=== PATIENT | male | born 1945 | race Caucasian/White ===

== ENCOUNTER 2022-05-25 13:27 | Inpatient (IN) | payer MEDICARE, BC, SELFPAY ==
[2022-05-25] VITALS (20 sets, daily range): BP systolic 136–187; BP diastolic 66–92; PULSE 72–102; RESP 15–18; TEMP 36.7; O2SAT 94–99; BMI 22.6
[2022-05-25] MEDS: ONDANSETRON 4 MG/2 ML INJ IV (16:06)
[2022-05-25 16:19] LABS: Add Manual Diff / Slide Review NO; Basophils Absolute Auto 0 /uL (0-100); Basophils Percent Auto 0.2 % (0-2); Eosinophils Absolute Auto 0 /uL (0-450); Hemoglobin 18.3 g/dL (13.5-17.5); Lymphocytes Absolute Auto 600 /uL (1100-4500); Lymphocytes Percent Auto 6.2 % (25-40); Mean Corpuscular HGB Conc 35.1 % (30-36); Mean Corpuscular Hemoglobin 33.5 PG (26-34); Mean Corpuscular Volume 95.3 fL (80-100); Monocytes Absolute Auto 600 /uL (0-900); Monocytes Percent Auto 6.2 % (3-14); Neutrophils Absolute Auto 8400 /uL (1500-7000); Neutrophils Percent Auto 87.4 % (50-75); Platelet Count 289 X10^3/uL (150-400); Red Blood Cell Count 5.46 X10^6/uL (4.5-5.9); Red Cell Distribution Width 13.5 % (11.6-14.8); White Blood Cell Count 9.7 X10^3/uL (4.5-11.0)
[2022-05-25 16:37] LABS: Alanine Aminotransferase 17 IU/L (<50); Albumin Globulin Ratio 1.2 (1.0-2.8); Alkaline Phosphatase 96 U/L (38-126); Aspartate Aminotransferase 30 IU/L (17-59); BUN Creatinine Ratio 21.3 (6-22); Bilirubin Total 0.8 mg/dL (0.2-1.3); Blood Urea Nitrogen 33 mg/dL (9-20); Calcium 10.1 mg/dL (8.4-10.2); Carbon Dioxide 34 mmol/L (22-32); Chloride 96 mmol/L (98-107); Estimated Glomerular Filt Rate 46 mL/min (>60); Globulin 4.1 g/dL (1.7-4.1); Glucose 128 mg/dL (80-110); HEMOLYSIS < 15 (0-50); Potassium 4.1 mmol/L (3.4-5.1); Sodium 141 mmol/L (137-145); Total Protein 9.1 g/dL (6.3-8.2)
[2022-05-25 16:39] LABS: Lactate (Lactic Acid) 1.6 mmol/L (0.7-2.1)
--- NOTE | 2022-05-25 16:43 | DI.CT.S_ITS ---
PROCEDURE: CT ABDOMEN PELVIS W CON INDICATIONS: RLQ tenderness, bowel obstruction vs obstipation? TECHNIQUE: After the administration of intravenous contrast, axial sections acquired from the lung bases to the pubic symphysis. Coronal and sagittal reformats were performed. For radiation dose reduction, the following was used: automated exposure control, adjustment of mA and/or kV according to patient size. COMPARISON: None. FINDINGS: Lower thorax: The lung bases are clear. Heart size normal. No hiatal hernia. Liver: Normal in size and attenuation. No contour deformity present. Biliary system: No calcified cholelithiasis or pericholecystic inflammation. No intra or extrahepatic bile duct dilatation. Pancreas: Stippled pancreatic calcification noted. No pancreatic pseudocyst. Spleen: Normal in size and density. Adrenals: Normal morphology and density. Reproductive system: Unremarkable as visualized. Urinary system: Normal renal size and attenuation. Peripelvic left renal cysts. No renal calculi, hydronephrosis, or solid mass present. Urinary bladder unremarkable. Gastrointestinal system: Proximal small bowel is fluid distended measuring up to 3.2 cm. Distal small bowel is decompressed. 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 Multiple diverticula arise from the sigmoid colon without evidence of diverticulitis. Appendix: No findings to suggest acute appendicitis. Peritoneal spaces: No mesenteric or retroperitoneal adenopathy. No free air. No free fluid. Vasculature: The IVC, aorta and iliac vasculature are unremarkable. Abdominal wall: Abdominal wall intact without evidence of ventral or inguinal hernias. Musculoskeletal: Normal bone mineralization. No acute fractures. IMPRESSION: 1. Small-bowel obstruction. 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 No evidence of perforation. 2. Stippled pancreatic calcification probable sequelae of chronic pancreatitis. Approved by: Tr Martin M.D. on 05/25/2022 at 16:08
--- NOTE | 2022-05-25 16:46 | ED_ITS ---
HPI - Nausea/Vomiting/Diarrhea <SHRADDHA Garrett - Last Filed: 05/25/22 20:40> General Chief complaint: Nausea/Vomiting/Diarrhea Stated complaint: Nausea vomitting Time Seen by Provider: 05/25/22 16:19 Source: patient Mode of arrival: Ambulatory History of Present Illness HPI Narrative: This is a 76-year-old male who presents to the emergency department complaining of right lower quadrant abdominal pain, transverse across his low abdomen for the last 2-3 days, endorses nausea and vomiting frequently over the last 2 days, feeling dehydrated, tired, endorses low back pain as well. Patient denies any shortness of breath, chest pain, orthopnea or exertional dyspnea. He has a history of hypertension states he only takes a blood pressure pill. He denies any blood in his stool but reports that yesterday he had a very large impacted stool that was painful and patient reports feeling GI distress today but denies any diarrhea. He reports that he has been constipated over the last week. They live in [facility] and are here on a boat currently. Patient denies fever or chills but endorses nausea and vomiting with hot and cold flush sensation. Related Data Allergies Allergy/AdvReac Type Severity Reaction Status Date / Time Sulfa (Sulfonamide Allergy Verified 05/25/22 13:42 Antibiotics) Review of Systems <SHRADDHA Garrett - Last Filed: 05/25/22 20:40> Review of Systems Narrative: General: denies fever, chills, malaise, sweats, fatigue Head/Neck: denies headache, neck pain, dizziness Eyes: denies visual changes, eye pain Cardio: denies chest pain, palpitations, edema Respiratory: denies dyspnea, cough, orthopnea GI: Endorses low transverse abdominal pain, nausea, vomiting : denies dysuria, hematuria, urinary retention, frequency or incontinence MSK: denies joint pain, muscle weakness Skin: denies rash, itching, skin lesions or other Neuro: denies numbness, tingling Patient History <SHRADDHA Garrett - Last Filed: 05/25/22 20:40> Social History Smoking Status: Unknown if ever smoked Smoking Status: Unknown if ever smoked alcohol intake frequency: 3 or more drinks per day Substance Use Type: does not use Exam <SHRADDHA Garrett - Last Filed: 05/25/22 20:40> Narrative Exam Narrative: Reviewed vitals signs and nursing notes. General: cooperative, comfortable, in no acute distress, well groomed HEENT: symmetrical facial expressions, moist mucous membranes Cardiovascular: regular rate and rhythm, no peripheral edema, warm extremities Respiratory: normal effort, able to speak in complete sentences, without wheezing, stridor, or abnormal breath sounds. No retractions or tachypnea. GI: abdomen distended, tender to palpation to the right upper quadrant, nondistended, without masses, without rebound tendernes MSK: moves all extremities, neurovascularly intact, no weakness, normal tone Skin: brisk capillary refill, without pallor or erythema Neuro: normal speech and cognition, A&O x3, ambulatory, clear speech Psych: mental status is grossly normal, congruent mood, normal affect, pleasant and cooperative Initial Vital Signs Initial Vital Signs: Vital Signs Temperature 98.0 F 05/25/22 13:42 Pulse Rate 87 05/25/22 13:42 Respiratory Rate 15 05/25/22 13:42 Blood Pressure 136/87 05/25/22 13:42 Pulse Oximetry 98 05/25/22 13:42 Oxygen Delivery Method 05/25/22 13:42 <Toma Roblero DO - Last Filed: 05/26/22 08:31> Initial Vital Signs Initial Vital Signs: Vital Signs Temperature 98.0 F 05/25/22 13:42 Pulse Rate 87 05/25/22 13:42 Respiratory Rate 15 05/25/22 13:42 Blood Pressure 136/87 05/25/22 13:42 Pulse Oximetry 98 05/25/22 13:42 Oxygen Delivery Method 05/25/22 13:42 Course <SHRADDHA Garrett - Last Filed: 05/25/22 20:40> Orders Ordered: ED Orders 05/26/22 00:04 Consult to Discharge Planning Routine Education, smoking cessation ONGOING 05/26/22 06:55 Basic Metabolic Panel Routine Complete Blood Count AUTO DIFF Routine NT-proBNP (BNP-Adult 18+) Routine Acetaminophen (Acetaminophen 325 Mg Tablet) 650 mg PO Q6HR [facility] Last Admin: 05/26/22 05:32 Dose: Not Given Documented By: Admin: 05/26/22 02:26 Dose: Not Given Documented By: SUE Enoxaparin Sodium (Enoxaparin 30 Mg/0.3 Ml Syringe) 30 mg SUBCUT DAILY [facility] Famotidine (Famotidine 20 Mg Tablet) 20 mg PO BEDTIME [facility] Last Admin: 05/26/22 00:44 Dose: Not Given Documented By: SUE Sodium Chloride (Normal Saline 0.9%) 1,000 mls @ 100 mls/hr IV CONT [facility] Last Admin: 05/26/22 04:32 Dose: 100 mls/hr Documented By: Infusion: 05/26/22 04:32 Dose: 100 mls/hr Documented By: Admin: 05/25/22 19:26 Dose: 100 mls/hr Documented By: SUE Sodium Chloride (Normal Saline 0.9%) 1,000 mls @ 100 mls/hr IV CONT [facility] Last Admin: 05/26/22 00:45 Dose: Not Given Documented By: SUE Naloxone HCl (Naloxone 0.4 Mg/Ml Vial) 0.1 mg IV Q2MIN PRN PRN Reason: Opiate Reversal Ondansetron HCl (Ondansetron 4 Mg Odt) 4 mg PO Q8HR PRN PRN Reason: Nausea And Vomiting Oxycodone HCl (Oxycodone Ir 5 Mg Tablet) 5 mg PO Q4HR PRN PRN Reason: Pain, Moderate (4-6) Discontinued Medications Lactated Ringer's (Lactated Ringers) 1,000 mls @ 1,000 mls/hr IV BOLUS ONE Stop: 05/25/22 17:42 Last Infusion: 05/25/22 18:13 Dose: 0 mls/hr Documented By: Admin: 05/25/22 17:04 Dose: 1,000 mls/hr Documented By: GIOVANNA Sodium Chloride (Normal Saline 0.9%) 500 mls @ 1,000 mls/hr IV BOLUS ONE Stop: 05/25/22 19:18 Last Infusion: 05/25/22 19:29 Dose: 0 mls/hr Documented By: Admin: 05/25/22 19:07 Dose: 1,000 mls/hr Documented By: GIOVANNA Ondansetron HCl (Ondansetron 4 Mg/2 Ml Inj) 4 mg IV NOW ONE Stop: 05/25/22 15:49 Last Admin: 05/25/22 16:06 Dose: 4 mg Documented By: KRISTIAN Vital Signs Vital signs: Vital Signs - 8 hr 05/25/22 13:42 05/25/22 17:15 05/25/22 16:20 Temperature 98.0 F Pulse Rate 87 87 88 Respiratory Rate 15 18 18 Blood Pressure 136/87 165/86 H 156/82 H Pulse Oximetry 98 97 97 Oxygen Delivery Method Room Air <Toma Roblero DO - Last Filed: 05/26/22 08:31> Orders Ordered: ED Orders 05/26/22 00:04 Consult to Discharge Planning Routine Education, smoking cessation ONGOING 05/26/22 06:55 Basic Metabolic Panel Routine Complete Blood Count AUTO DIFF Routine NT-proBNP (BNP-Adult 18+) Routine Acetaminophen (Acetaminophen 325 Mg Tablet) 650 mg PO Q6HR [facility] Last Admin: 05/26/22 05:32 Dose: Not Given Documented By: Admin: 05/26/22 02:26 Dose: Not Given Documented By: SUE Enoxaparin Sodium (Enoxaparin 30 Mg/0.3 Ml Syringe) 30 mg SUBCUT DAILY [facility] Famotidine (Famotidine 20 Mg Tablet) 20 mg PO BEDTIME [facility] Last Admin: 05/26/22 00:44 Dose: Not Given Documented By: SUE Sodium Chloride (Normal Saline 0.9%) 1,000 mls @ 100 mls/hr IV CONT [facility] Last Admin: 05/26/22 04:32 Dose: 100 mls/hr Documented By: Infusion: 05/26/22 04:32 Dose: 100 mls/hr Documented By: Admin: 05/25/22 19:26 Dose: 100 mls/hr Documented By: SUE Sodium Chloride (Normal Saline 0.9%) 1,000 mls @ 100 mls/hr IV CONT [facility] Last Admin: 05/26/22 00:45 Dose: Not Given Documented By: SUE Naloxone HCl (Naloxone 0.4 Mg/Ml Vial) 0.1 mg IV Q2MIN PRN PRN Reason: Opiate Reversal Ondansetron HCl (Ondansetron 4 Mg Odt) 4 mg PO Q8HR PRN PRN Reason: Nausea And Vomiting Oxycodone HCl (Oxycodone Ir 5 Mg Tablet) 5 mg PO Q4HR PRN PRN Reason: Pain, Moderate (4-6) Discontinued Medications Lactated Ringer's (Lactated Ringers) 1,000 mls @ 1,000 mls/hr IV BOLUS ONE Stop: 05/25/22 17:42 Last Infusion: 05/25/22 18:13 Dose: 0 mls/hr Documented By: Admin: 05/25/22 17:04 Dose: 1,000 mls/hr Documented By: GIOVANNA Sodium Chloride (Normal Saline 0.9%) 500 mls @ 1,000 mls/hr IV BOLUS ONE Stop: 05/25/22 19:18 Last Infusion: 05/25/22 19:29 Dose: 0 mls/hr Documented By: Admin: 05/25/22 19:07 Dose: 1,000 mls/hr Documented By: GIOVANNA Ondansetron HCl (Ondansetron 4 Mg/2 Ml Inj) 4 mg IV NOW ONE Stop: 05/25/22 15:49 Last Admin: 05/25/22 16:06 Dose: 4 mg Documented By: KRISTIAN Vital Signs Vital signs: Vital Signs - 8 hr 05/25/22 13:42 05/25/22 17:15 05/25/22 16:20 Temperature 98.0 F Pulse Rate 87 87 88 Respiratory Rate 15 18 18 Blood Pressure 136/87 165/86 H 156/82 H Pulse Oximetry 98 97 97 Oxygen Delivery Method Room Air MDM - Nausea/Vomiting/Diarrhea <SHRADDHA Garrett - Last Filed: 05/25/22 20:40> Lab Data Result diagrams: 05/26/22 06:55 05/26/22 06:55 Labs: Lab Results 05/25/22 05/25/22 05/25/22 Range/Units 16:00 16:00 16:06 WBC 9.7 (4.5-11.0) X10^3/uL RBC 5.46 (4.5-5.9) X10^6/uL Hgb 18.3 H (13.5-17.5) g/dL Hct 52.0 (41-53) % MCV 95.3 (80-100) fL MCH 33.5 (26-34) PG MCHC 35.1 (30-36) % RDW 13.5 (11.6-14.8) % Plt Count 289 (150-400) X10^3/uL Neut % (Auto) 87.4 H (50-75) % Lymph % (Auto) 6.2 L (25-40) % [place] % (Auto) 6.2 (3-14) % Eos % (Auto) 0.0 L (2-4) % Baso % (Auto) 0.2 (0-2) % Neut # (Auto) 8400 H (4526-8404) /uL Lymph # (Auto) 600 L (6413-1650) /uL [place] # (Auto) 600 (0-900) /uL Eos # (Auto) 0 (0-450) /uL Baso # (Auto) 0 (0-100) /uL Sodium (137-145) mmol/L Potassium (3.4-5.1) mmol/L Chloride (98-107) mmol/L Carbon Dioxide (22-32) mmol/L BUN (9-20) mg/dL Creatinine (0.66-1.25) mg/dL Estimated GFR (>60) mL/min BUN/Creatinine Ratio (6-22) Glucose (80-110) mg/dL Lactate 1.6 (0.7-2.1) mmol/L Calcium (8.4-10.2) mg/dL Magnesium 2.3 (1.6-2.3) mg/dL Total Bilirubin (0.2-1.3) mg/dL AST (17-59) IU/L ALT (<50) IU/L Alkaline Phosphatase (38-126) U/L Total Protein (6.3-8.2) g/dL Albumin (3.5-5.0) g/dL Globulin (1.7-4.1) g/dL Albumin/Globulin Ratio (1.0-2.8) Lipase 62 (23-300) U/L 05/25/22 Range/Units 16:06 WBC (4.5-11.0) X10^3/uL RBC (4.5-5.9) X10^6/uL Hgb (13.5-17.5) g/dL Hct (41-53) % MCV (80-100) fL MCH (26-34) PG MCHC (30-36) % RDW (11.6-14.8) % Plt Count (150-400) X10^3/uL Neut % (Auto) (50-75) % Lymph % (Auto) (25-40) % [place] % (Auto) (3-14) % Eos % (Auto) (2-4) % Baso % (Auto) (0-2) % Neut # (Auto) (0145-9501) /uL Lymph # (Auto) (7757-9015) /uL [place] # (Auto) (0-900) /uL Eos # (Auto) (0-450) /uL Baso # (Auto) (0-100) /uL Sodium 141 (137-145) mmol/L Potassium 4.1 (3.4-5.1) mmol/L Chloride 96 L (98-107) mmol/L Carbon Dioxide 34 H (22-32) mmol/L BUN 33 H (9-20) mg/dL Creatinine 1.55 H (0.66-1.25) mg/dL Estimated GFR 46 L (>60) mL/min BUN/Creatinine Ratio 21.3 (6-22) Glucose 128 H (80-110) mg/dL Lactate (0.7-2.1) mmol/L Calcium 10.1 (8.4-10.2) mg/dL Magnesium (1.6-2.3) mg/dL Total Bilirubin 0.8 (0.2-1.3) mg/dL AST 30 (17-59) IU/L ALT 17 (<50) IU/L Alkaline Phosphatase 96 (38-126) U/L Total Protein 9.1 H (6.3-8.2) g/dL Albumin 5.0 (3.5-5.0) g/dL Globulin 4.1 (1.7-4.1) g/dL Albumin/Globulin Ratio 1.2 (1.0-2.8) Lipase (23-300) U/L Imaging Data CT scan - abdomen/pelvis: Radiologist's Impression: PROCEDURE:? CT ABDOMEN PELVIS W CON ? INDICATIONS:? RLQ tenderness, bowel obstruction vs obstipation? ? TECHNIQUE:? After the administration of intravenous contrast, axial sections acquired from the lung bases to the pubic symphysis.? Coronal and sagittal reformats were performed.? For radiation dose reduction, the following was used:? automated exposure control, adjustment of mA and/or kV according to patient size.? ? COMPARISON:? None. ? FINDINGS: ? Lower thorax: The lung bases are clear.? Heart size normal.? No hiatal hernia. ? Liver:? Normal in size and attenuation. No contour deformity present. ? Biliary system:? No calcified cholelithiasis or pericholecystic inflammation.? No intra or extrahepatic bile duct dilatation. ? Pancreas:? Stippled pancreatic calcification noted.? No pancreatic pseudocyst. ? Spleen:? Normal in size and density. ? Adrenals:? Normal morphology and density. ? Reproductive system:? Unremarkable as visualized. ? Urinary system:? Normal renal size and attenuation.? Peripelvic left renal c ysts.? No renal calculi, hydronephrosis, or solid mass present.? Urinary bladder unremarkable. ? Gastrointestinal system:? Proximal small bowel is fluid distended measuring up to 3.2 cm. ?Distal small bowel is decompressed.? 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 Multiple diverticula arise from the sigmoid colon without evidence of diverticulitis. ? ? Appendix:? No findings to suggest acute appendicitis. ? Peritoneal spaces:? No mesenteric or retroperitoneal adenopathy.? No free air.? No free fluid.? ? Vasculature:? The IVC, aorta and iliac vasculature are unremarkable. ? Abdominal wall:? Abdominal wall intact without evidence of ventral or inguinal hernias. ? Musculoskeletal:? Normal bone mineralization.? No acute fractures.? ? IMPRESSION: ? 1. Small-bowel obstruction.? 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 No evidence of perforation. ? 2. Stippled pancreatic calcification probable sequelae of chronic pancreatitis.? ? ? Approved by: Tr Martin M.D. on 05/25/2022 at 16:08? MDM Narrative Medical decision making narrative: This is a 76-year-old male without significant medical history who presents to the emergency department for evaluation of his abdominal pain and persistent vomiting over last 3 days. His lab work showed hemoconcentration was concerning for dehydration, neutrophil count of 8400 no significant electrolyte abnormalities, his creatinine elevated at 1.55. No lactic acidosis, no elevation in liver enzymes, lipase of 62. No history of kidney stones or abdominal surgery. 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 No evidence of perforation, stapled pancreatic calcification probable sequelae of chronic pancreatitis. Patient was given 1 L of lactated Ringer's, 4 mg of Zofran and had resolution of his repetitive vomiting. Consultation with Dr. Camp who accepts patient for admission for small-bowel obstruction. NG tube was placed to low intermittent suction, patient stomach is decompressed and he feels better. COVID PCR is negative. No peritoneal signs on abdominal exam. Serial abdominal exam without improvement in abdominal pain. Given history and exam, low suspicion for acute abdominal process, such as acute cholecystitis, pancreatitis, perforated viscus, atypical appendicitis, colitis, diverticulitis or torsion. <Toma Roblero, DO - Last Filed: 05/26/22 08:31> Lab Data Labs: Lab Results 05/25/22 05/25/22 05/25/22 Range/Units 16:00 16:00 16:06 WBC 9.7 (4.5-11.0) X10^3/uL RBC 5.46 (4.5-5.9) X10^6/uL Hgb 18.3 H (13.5-17.5) g/dL Hct 52.0 (41-53) % MCV 95.3 (80-100) fL MCH 33.5 (26-34) PG MCHC 35.1 (30-36) % RDW 13.5 (11.6-14.8) % Plt Count 289 (150-400) X10^3/uL Neut % (Auto) 87.4 H (50-75) % Lymph % (Auto) 6.2 L (25-40) % [place] % (Auto) 6.2 (3-14) % Eos % (Auto) 0.0 L (2-4) % Baso % (Auto) 0.2 (0-2) % Neut # (Auto) 8400 H (0465-1287) /uL Lymph # (Auto) 600 L (0902-0482) /uL [place] # (Auto) 600 (0-900) /uL Eos # (Auto) 0 (0-450) /uL Baso # (Auto) 0 (0-100) /uL Sodium (137-145) mmol/L Potassium (3.4-5.1) mmol/L Chloride (98-107) mmol/L Carbon Dioxide (22-32) mmol/L BUN (9-20) mg/dL Creatinine (0.66-1.25) mg/dL Estimated GFR (>60) mL/min BUN/Creatinine Ratio (6-22) Glucose (80-110) mg/dL Lactate 1.6 (0.7-2.1) mmol/L Calcium (8.4-10.2) mg/dL Magnesium 2.3 (1.6-2.3) mg/dL Total Bilirubin (0.2-1.3) mg/dL AST (17-59) IU/L ALT (<50) IU/L Alkaline Phosphatase (38-126) U/L Total Protein (6.3-8.2) g/dL Albumin (3.5-5.0) g/dL Globulin (1.7-4.1) g/dL Albumin/Globulin Ratio (1.0-2.8) Lipase 62 (23-300) U/L 05/25/22 Range/Units 16:06 WBC (4.5-11.0) X10^3/uL RBC (4.5-5.9) X10^6/uL Hgb (13.5-17.5) g/dL Hct (41-53) % MCV (80-100) fL MCH (26-34) PG MCHC (30-36) % RDW (11.6-14.8) % Plt Count (150-400) X10^3/uL Neut % (Auto) (50-75) % Lymph % (Auto) (25-40) % [place] % (Auto) (3-14) % Eos % (Auto) (2-4) % Baso % (Auto) (0-2) % Neut # (Auto) (1421-8564) /uL Lymph # (Auto) (1008-3054) /uL Stanton # (Auto) (0-900) /uL Eos # (Auto) (0-450) /uL Baso # (Auto) (0-100) /uL Sodium 141 (137-145) mmol/L Potassium 4.1 (3.4-5.1) mmol/L Chloride 96 L (98-107) mmol/L Carbon Dioxide 34 H (22-32) mmol/L BUN 33 H (9-20) mg/dL Creatinine 1.55 H (0.66-1.25) mg/dL Estimated GFR 46 L (>60) mL/min BUN/Creatinine Ratio 21.3 (6-22) Glucose 128 H (80-110) mg/dL Lactate (0.7-2.1) mmol/L Calcium 10.1 (8.4-10.2) mg/dL Magnesium (1.6-2.3) mg/dL Total Bilirubin 0.8 (0.2-1.3) mg/dL AST 30 (17-59) IU/L ALT 17 (<50) IU/L Alkaline Phosphatase 96 (38-126) U/L Total Protein 9.1 H (6.3-8.2) g/dL Albumin 5.0 (3.5-5.0) g/dL Globulin 4.1 (1.7-4.1) g/dL Albumin/Globulin Ratio 1.2 (1.0-2.8) Lipase (23-300) U/L Discharge Plan Departure Patient Disposition: Admitted As Inpatient Clinical Impression: Complete small bowel obstruction Admit Date/Time: 05/25/22 17:55 Admit Provider: Bren Camp <Toma Roblero DO - Last Filed: 05/26/22 08:31> Cosign ED Attending Ashleigh Attestation: I was immediately available in the department for consultation. Documentation has been reviewed. I agree with assessment and plan.
[2022-05-25 16:54] LABS: Lipase 62 U/L (23-300); Magnesium 2.3 mg/dL (1.6-2.3)
[2022-05-25] MEDS: LACTATED RINGERS 1,000 ML 1000 ML IV (17:04)
--- NOTE | 2022-05-25 18:24 | P.HP_ITS ---
History of Present Illness History of Present Illness Date Patient Seen: 05/25/22 Time Patient Seen: 18:24 Date of Onset of Symptoms: 05/22/22 Chief complaint: Nausea vomitting Narrative: 3 days of nausea and vomiting. Emesis over 30 times. No previous episodes. No abdominal surgery previously, but has had ETOH pancreatitis. Last BM was very hard. Pain is central and sharp. No radiation Patient History Family & Social History Safety & Behavioral: Feels Safe in Current Yes Environment Been Physically Hurt or No Threatened By a Person Tobacco & Substance use: Smoking Status Unknown if ever smoked alcohol intake frequency 3 or more drinks per day Substance Use Type does not use Meds Home Medications and Allergies Allergies Allergy/AdvReac Type Severity Reaction Status Date / Time Sulfa (Sulfonamide Allergy Verified 05/25/22 13:42 Antibiotics) Review of Systems Review of Systems ROS: Yes All systems reviewed with the patient and are negative except as otherwise documented Exam Vital Signs (past 8 hours): - 05/25/22 13:42 05/25/22 17:58 05/25/22 17:15 Temperature 98.0 F Pulse Rate 87 87 87 Respiratory Rate 15 18 18 Blood Pressure 136/87 178/81 H 165/86 H Pulse Oximetry 98 96 97 Oxygen Delivery Method Room Air 05/25/22 16:20 Temperature Pulse Rate 88 Respiratory Rate 18 Blood Pressure 156/82 H Pulse Oximetry 97 Oxygen Delivery Method Oxygen Delivery Method Room Air Const General: cooperative and acute distress Nutritional Appearance: thin HENMT Head: normocephalic and atraumatic Ears: hearing grossly normal bilaterally Eyes General: appearance normal, both eyes and all related structures Sclera: sclerae normal Neck Neck: normal visual inspection Chest Chest: normal inspection of the chest Resp Effort & Inspection: normal respiratory effort and able to speak in complete sentences Cardio Rate: regular rate Rhythm: regular rhythm GI Palpation: soft and tender (distended and tender to palpation in mid abdomen. Not acute. Moves easily) Skin General: no rashes or lesions noted and elasticity normal Neuro General: patient alert, patient awake and patient oriented x3 Cognition: normal cognition Extrem General: normal to inspection and full ROM Psych Appearance: grossly normal and well kempt Affect: normal affect Attitude: cooperative Judgment: judgment good Objective Imaging CT scan - abdomen: My impression: Agree with high grade SBO with transition mid abdomen. Calcified pancrease c/w previous inflammation. Is also concerning for ischemic component with the exception that it has been going on for 3 days. Labs Result Diagrams: 05/25/22 16:06 05/25/22 16:06 Labs: Laboratory Results - last 24 hr 05/25/22 05/25/22 05/25/22 16:00 16:00 16:06 WBC 9.7 RBC 5.46 Hgb 18.3 H Hct 52.0 MCV 95.3 MCH 33.5 MCHC 35.1 RDW 13.5 Plt Count 289 Neut % (Auto) 87.4 H Lymph % (Auto) 6.2 L [place] % (Auto) 6.2 Eos % (Auto) 0.0 L Baso % (Auto) 0.2 Neut # (Auto) 8400 H Lymph # (Auto) 600 L [place] # (Auto) 600 Eos # (Auto) 0 Baso # (Auto) 0 Sodium Potassium Chloride Carbon Dioxide BUN Creatinine Estimated GFR BUN/Creatinine Ratio Glucose Lactate 1.6 Calcium Magnesium 2.3 Total Bilirubin AST ALT Alkaline Phosphatase Total Protein Albumin Globulin Albumin/Globulin Ratio Lipase 62 05/25/22 16:06 WBC RBC Hgb Hct MCV MCH MCHC RDW Plt Count Neut % (Auto) Lymph % (Auto) [place] % (Auto) Eos % (Auto) Baso % (Auto) Neut # (Auto) Lymph # (Auto) [place] # (Auto) Eos # (Auto) Baso # (Auto) Sodium 141 Potassium 4.1 Chloride 96 L Carbon Dioxide 34 H BUN 33 H Creatinine 1.55 H Estimated GFR 46 L BUN/Creatinine Ratio 21.3 Glucose 128 H Lactate Calcium 10.1 Magnesium Total Bilirubin 0.8 AST 30 ALT 17 Alkaline Phosphatase 96 Total Protein 9.1 H Albumin 5.0 Globulin 4.1 Albumin/Globulin Ratio 1.2 Lipase Assessment & Plan Assessment & Plan narrative: High grade SBO mid abdomen. acute renal injury Plan: hydration, NGT to LIS, checking lactic acid COVID-19 COVID-19 status: Negative Time Spent With Patient Time with patient: 30 to 49 minutes with 50% spent counseling/coordinating care Critical Care time: I spent a total of [] minutes of critical care time on this patient's care today; this time is exclusive of procedural time.
--- NOTE | 2022-05-25 18:49 | DI.RAD.S_ITS ---
PROCEDURE: XR CHEST 1V INDICATIONS: ngt placement confirmation TECHNIQUE: One view of the chest was acquired. COMPARISON: None. FINDINGS: Surgical changes and devices: NG tube present with the tip and side hole projecting over the left upper quadrant of the abdomen. Lungs and pleura: Lungs are clear. No pleural effusions or pneumothorax. Mediastinum: Mediastinal contours appear normal. Heart size is normal. Bones and chest wall: No suspicious bony lesions. Overlying soft tissues appear unremarkable. IMPRESSION: 1. Satisfactory placement of nasogastric tube. 2. Normal heart and lungs. Dictated by: Dianne Clarke M.D. on 05/25/2022 at 20:49 Approved by: Dianne Clarke M.D. on 05/25/2022 at 20:50
[2022-05-25] MEDS: SODIUM CHLORIDE 0.9% 500 ML 1000 ML IV (19:07)
[2022-05-25 19:13] LABS: COVID19 -Nasal RAPID Negative (Negative)
[2022-05-25] MEDS: SODIUM CHLORIDE 0.9% 1,000 ML 100 ML IV (19:26)
[2022-05-25 21:13] LABS: Ictotest Urine Negative (Negative)
[2022-05-25 21:28] LABS: Bacteria Urine None Seen; Hyaline Casts Urine 0-1/LPF; RBC Urine 0-1/HPF (0-5/HPF); Squamous Epithelial Cell Urine 0-1 /HPF (0-5/HPF); WBC Urine 0-1/HPF (0-5/HPF)
[2022-05-25 21:29] LABS: Culture Indicated Urine Cult Not Indicated
[2022-05-26] VITALS (29 sets, daily range): BP systolic 118–170; BP diastolic 58–100; PULSE 61–97; RESP 17–19; TEMP 36.4–37.3; O2SAT 93–98; BMI 21.7
[2022-05-26] MEDS: SODIUM CHLORIDE 0.9% 1,000 ML 100 ML IV ×2 (04:32→15:58)
[2022-05-26 07:20] LABS: Add Manual Diff / Slide Review NO; Basophils Absolute Auto 0 /uL (0-100); Basophils Percent Auto 0.3 % (0-2); Eosinophils Absolute Auto 0 /uL (0-450); Eosinophils Percent Auto 0.4 % (2-4); Hematocrit 46.4 % (41-53); Hemoglobin 16.3 g/dL (13.5-17.5); Lymphocytes Absolute Auto 1000 /uL (1100-4500); Lymphocytes Percent Auto 12.4 % (25-40); Mean Corpuscular HGB Conc 35.1 % (30-36); Mean Corpuscular Hemoglobin 33.6 PG (26-34); Mean Corpuscular Volume 95.7 fL (80-100); Monocytes Absolute Auto 800 /uL (0-900); Monocytes Percent Auto 9.8 % (3-14); Neutrophils Absolute Auto 6300 /uL (1500-7000); Neutrophils Percent Auto 77.1 % (50-75); Platelet Count 212 X10^3/uL (150-400); Red Blood Cell Count 4.85 X10^6/uL (4.5-5.9); Red Cell Distribution Width 13.9 % (11.6-14.8); White Blood Cell Count 8.2 X10^3/uL (4.5-11.0)
[2022-05-26 07:38] LABS: BUN Creatinine Ratio 24.1 (6-22); Blood Urea Nitrogen 26 mg/dL (9-20); Calcium 8.6 mg/dL (8.4-10.2); Carbon Dioxide 32 mmol/L (22-32); Chloride 103 mmol/L (98-107); Estimated Glomerular Filt Rate > 60 mL/min (>60); Glucose 97 mg/dL (80-110); HEMOLYSIS < 15 (0-50); Potassium 3.5 mmol/L (3.4-5.1); Sodium 141 mmol/L (137-145)
[2022-05-26 07:44] LABS: NT-proBNP (BNP-Adult 18+) 132 pg/mL (<450)
[2022-05-26] MEDS: ENOXAPARIN 30 MG/0.3 ML SYRINGE SUBCUT (08:45)
--- NOTE | 2022-05-26 15:54 | P.PN_ITS ---
Subjective Subjective Date Patient Seen: 05/26/22 Time Patient Seen: 15:54 Interval history: Pain is significantly decreased from yesterday. He reports that he feels like he will pass gas soon. Exam Vital Signs (past 8 hours): - 05/26/22 08:00 05/26/22 08:00 05/26/22 08:30 Temperature Pulse Rate 70 68 Respiratory Rate Blood Pressure 161/87 H Pulse Oximetry 95 94 05/26/22 09:00 05/26/22 09:29 05/26/22 09:29 Temperature Pulse Rate 67 75 Respiratory Rate Blood Pressure 151/83 H Pulse Oximetry 95 95 05/26/22 09:30 05/26/22 10:00 05/26/22 10:30 Temperature Pulse Rate 73 71 65 Respiratory Rate Blood Pressure Pulse Oximetry 95 96 96 05/26/22 11:00 05/26/22 12:47 Temperature 97.5 F L Pulse Rate 67 70 Respiratory Rate 17 Blood Pressure 150/80 H 146/81 H Pulse Oximetry 93 98 Oxygen Delivery Method Room Air Const General: No acute distress Other: Abdomen is soft, nontender Objective Labs Result Diagrams: 05/26/22 06:55 05/26/22 06:55 Labs: Laboratory Results - last 24 hr 05/25/22 05/25/22 05/25/22 16:00 16:00 16:06 WBC 9.7 RBC 5.46 Hgb 18.3 H Hct 52.0 MCV 95.3 MCH 33.5 MCHC 35.1 RDW 13.5 Plt Count 289 Neut % (Auto) 87.4 H Lymph % (Auto) 6.2 L Miller % (Auto) 6.2 Eos % (Auto) 0.0 L Baso % (Auto) 0.2 Neut # (Auto) 8400 H Lymph # (Auto) 600 L Miller # (Auto) 600 Eos # (Auto) 0 Baso # (Auto) 0 Sodium Potassium Chloride Carbon Dioxide BUN Creatinine Estimated GFR BUN/Creatinine Ratio Glucose Lactate 1.6 Calcium Magnesium 2.3 Total Bilirubin AST ALT Alkaline Phosphatase NT-Pro-B Natriuret Pep Total Protein Albumin Globulin Albumin/Globulin Ratio Lipase 62 Ur Bilirubin Confirm Urine RBC Urine WBC Ur Squamous Epith Cells Urine Bacteria Hyaline Casts Ur Culture Indicated? SARS-CoV-2 (PCR) 08/24/22 08/24/22 08/24/22 16:06 18:00 20:09 WBC RBC Hgb Hct MCV MCH MCHC RDW Plt Count Neut % (Auto) Lymph % (Auto) Miller % (Auto) Eos % (Auto) Baso % (Auto) Neut # (Auto) Lymph # (Auto) Miller # (Auto) Eos # (Auto) Baso # (Auto) Sodium 141 Potassium 4.1 Chloride 96 L Carbon Dioxide 34 H BUN 33 H Creatinine 1.55 H Estimated GFR 46 L BUN/Creatinine Ratio 21.3 Glucose 128 H Lactate Calcium 10.1 Magnesium Total Bilirubin 0.8 AST 30 ALT 17 Alkaline Phosphatase 96 NT-Pro-B Natriuret Pep Total Protein 9.1 H Albumin 5.0 Globulin 4.1 Albumin/Globulin Ratio 1.2 Lipase Ur Bilirubin Confirm Urine RBC 0-1/hpf Urine WBC 0-1/hpf Ur Squamous Epith Cells 0-1 /hpf Urine Bacteria None seen Hyaline Casts 0-1/lpf Ur Culture Indicated? Cult not indicated SARS-CoV-2 (PCR) Negative 05/25/22 05/26/22 05/26/22 20:09 06:55 06:55 WBC 8.2 RBC 4.85 Hgb 16.3 Hct 46.4 MCV 95.7 MCH 33.6 MCHC 35.1 RDW 13.9 Plt Count 212 Neut % (Auto) 77.1 H Lymph % (Auto) 12.4 L Miller % (Auto) 9.8 Eos % (Auto) 0.4 L Baso % (Auto) 0.3 Neut # (Auto) 6300 Lymph # (Auto) 1000 L Miller # (Auto) 800 Eos # (Auto) 0 Baso # (Auto) 0 Sodium 141 Potassium 3.5 Chloride 103 Carbon Dioxide 32 BUN 26 H Creatinine 1.08 Estimated GFR > 60 BUN/Creatinine Ratio 24.1 H Glucose 97 Lactate Calcium 8.6 Magnesium Total Bilirubin AST ALT Alkaline Phosphatase NT-Pro-B Natriuret Pep Total Protein Albumin Globulin Albumin/Globulin Ratio Lipase Ur Bilirubin Confirm Negative Urine RBC Urine WBC Ur Squamous Epith Cells Urine Bacteria Hyaline Casts Ur Culture Indicated? SARS-CoV-2 (PCR) 05/26/22 06:55 WBC RBC Hgb Hct MCV MCH MCHC RDW Plt Count Neut % (Auto) Lymph % (Auto) Miller % (Auto) Eos % (Auto) Baso % (Auto) Neut # (Auto) Lymph # (Auto) Miller # (Auto) Eos # (Auto) Baso # (Auto) Sodium Potassium Chloride Carbon Dioxide BUN Creatinine Estimated GFR BUN/Creatinine Ratio Glucose Lactate Calcium Magnesium Total Bilirubin AST ALT Alkaline Phosphatase NT-Pro-B Natriuret Pep 132 Total Protein Albumin Globulin Albumin/Globulin Ratio Lipase Ur Bilirubin Confirm Urine RBC Urine WBC Ur Squamous Epith Cells Urine Bacteria Hyaline Casts Ur Culture Indicated? SARS-CoV-2 (PCR) [facility] Social History household members: spouse Smoking Status: Former smoker alcohol intake: current Assessment & Plan Assessment and plan (1) Complete small bowel obstruction: Status: Acute Plan Continue NG tube Await flatus Time Spent With Patient Critical Care time: I spent a total of [] minutes of critical care time on this patient's care today; this time is exclusive of procedural time. Quality VTE Deep Vein Thrombosis/Pulmonary Embolism Present on Admission: No
[2022-05-27] VITALS (7 sets, daily range): BP systolic 109–146; BP diastolic 58–77; PULSE 63–76; RESP 16–18; TEMP 36.4–37.4; O2SAT 96–98
[2022-05-27] MEDS: SODIUM CHLORIDE 0.9% FLUSH 10 ML IV (08:43)
[2022-05-27] MEDS: ENOXAPARIN 40 MG/0.4 ML SYRINGE SUBCUT (08:43)
[2022-05-27] MEDS: SODIUM CHLORIDE 0.9% 1,000 ML 100 ML IV (11:01)
--- NOTE | 2022-05-27 12:04 | CM.DANOTE ---
Initial Discharge Assessment Note: Case received, EMR reviewed. Introduced self and role. Payer: Medicare and [employer] [facility] PCP: in [place]. Surgeon consult here in house. 76 year old male admitted yesterday for N/V and dx'd with SBO. An NG tube was placed at the time. Dr Cano in this morning and removed NGT per day nurse Martha. Patient states he is passing a little gas and feeling a little better. He has been started on a clear liquid diet. He and his live in [facility] near their daughter (son in [place]). They drove out to [place] to be on their boat and traveled in the [facility] and nearing their return, he suffered the above symptoms. Plan: Once medically stable, to return home with spouse. PRATIBHA Discharge Planning/Care Management CM Discharge Assessment Start: 05/27/22 11:58 Freq: Status: Active Protocol: Document 05/27/22 11:58 (Rec: 05/27/22 12:04 [id number]) Discharge Planning Assessment Advance Directives? No History Provided By Patient,Medical Record Prior Living Arrangements House Household Members spouse Type of transporation used prior to Drives own vehicle admit Independent with ADL's Yes Is patient alert and oriented? Yes Caregiver for Another No Barriers to Discharge No Discharge Plan Home Transportation Arrangement spouse will provide transport. Pt lives in [facility] with spouse and are visiting here in [place] to be on their boat. Referrals Initiated None needed Whiteboard Updated in Patient Room with Yes name and ext. # of Plant Health Care Technician Review Status In Process Next Review Type Continued Stay Review
--- NOTE | 2022-05-27 14:21 | P.PN_ITS ---
Subjective Subjective Date Patient Seen: 05/27/22 Time Patient Seen: 14:21 Interval history: +Flatus No abdominal pain Hungry Exam Vital Signs (past 8 hours): - 05/27/22 08:00 05/27/22 09:00 05/27/22 12:00 Temperature 97.6 F 98.0 F Pulse Rate 75 63 Respiratory Rate 18 18 Blood Pressure 129/66 127/75 Pulse Oximetry 97 97 97 Oxygen Delivery Method Room Air Oxygen Flow Rate 0 0 0 Oxygen Delivery Method Room Air Oxygen Flow Rate 0 Narrative Exam Narrative: general adult male alert oriented no acute distress Abdomen soft nontender nondistended. Objective Labs Result Diagrams: 05/26/22 06:55 05/26/22 06:55 [facility] Social History household members: spouse Smoking Status: Former smoker alcohol intake: current Assessment & Plan Assessment and plan (1) Complete small bowel obstruction: Problem details: 76-year-old man no prior abdominal surgery admitted with a small-bowel obstruction. obstruction is resolving with conservative measures. He has return of bowel function Remove nasogastric tube Start clear liquids. Status: Acute Time Spent With Patient Critical Care time: I spent a total of [] minutes of critical care time on this patient's care today; this time is exclusive of procedural time. Quality VTE Deep Vein Thrombosis/Pulmonary Embolism Present on Admission: No
[2022-05-28 06:20] VITALS: BP 127/65; PULSE 60; RESP 16; TEMP 36.5; O2SAT 96
[2022-05-28] MEDS: SODIUM CHLORIDE 0.9% FLUSH 10 ML IV ×2 (08:13→21:21)
[2022-05-28 09:05] VITALS: O2SAT 96
[2022-05-28 10:15] VITALS: BP 132/78; PULSE 60; RESP 16; TEMP 36.7; O2SAT 97
--- NOTE | 2022-05-28 13:08 | PM.PN.1 ---
Subjective Subjective Date Patient Seen: 05/28/22 Time Patient Seen: 13:08 Interval history: Sebastian has continued to pass gas. He has tolerated a clear liquid diet and today he is doing well with a full liquid diet. He still feels as if he is more bloated than normal. Exam Vital Signs (past 8 hours): - 05/28/22 06:20 05/28/22 09:05 05/28/22 10:15 Temperature 97.7 F 98.1 F Pulse Rate 60 60 Respiratory Rate 16 16 Blood Pressure 127/65 132/78 Pulse Oximetry 96 96 97 Oxygen Delivery Method Room Air Oxygen Flow Rate 0 Oxygen Delivery Method Room Air Oxygen Flow Rate 0 Narrative Exam Narrative: Abdomen soft, nontender Objective Labs Result Diagrams: 05/26/22 06:55 05/26/22 06:55 [facility] Social History household members: spouse Smoking Status: Former smoker alcohol intake: current Assessment & Plan Assessment and plan (1) Complete small bowel obstruction: Problem details: 76-year-old man no prior abdominal surgery admitted with a small-bowel obstruction. obstruction is resolving with conservative measures. He has return of bowel function Remove nasogastric tube Start clear liquids. Status: Acute Plan Bowel obstruction appears to be resolving. We will advance to regular diet for dinner tonight and hopefully he can go home tomorrow. Time Spent With Patient Critical Care time: I spent a total of [] minutes of critical care time on this patient's care today; this time is exclusive of procedural time. Quality VTE Deep Vein Thrombosis/Pulmonary Embolism Present on Admission: No
[2022-05-28 14:15] VITALS: BP 131/72; PULSE 59; RESP 16; TEMP 36.7; O2SAT 97
--- NOTE | 2022-05-28 17:50 | PC.NURSE ---
patient tolerated general diet. no pain, no n/v. patient had another BM this afternoon
[2022-05-28 18:33] VITALS: BP 125/71; PULSE 65; RESP 16; TEMP 37.3; O2SAT 98
[2022-05-28 20:20] VITALS: BP 142/80; PULSE 64; RESP 18; TEMP 36.6; O2SAT 97
[2022-05-29] VITALS: BP 136/97; PULSE 59; RESP 16; TEMP 37; O2SAT 98
[2022-05-29 04:21] VITALS: BP 135/77; PULSE 68; RESP 20; TEMP 36.6; O2SAT 95
[2022-05-29 08:06] VITALS: BP 134/77; PULSE 57; RESP 16; TEMP 36.6; O2SAT 97
[2022-05-29 08:07] VITALS: O2SAT 97
[2022-05-29] MEDS: SODIUM CHLORIDE 0.9% FLUSH 10 ML IV (08:10)
[2022-05-29] MEDS: ENOXAPARIN 40 MG/0.4 ML SYRINGE SUBCUT (08:10)
--- NOTE | 2022-05-29 11:51 | P.DS_ITS ---
History of Present Illness History of Present Illness Date Patient Seen: 05/29/22 Time Patient Seen: 11:51 Chief complaint: Nausea vomitting Narrative: The patient was admitted with a small-bowel obstruction. Initially an NG tube was placed and there was high output. Eventually he felt better and started passing some gas. The NG tube was removed. His diet was gradually advanced. He was discharged home once he was tolerating regular diet and having bowel fu nction. Discharge Providers Provider Date of admission: 05/25/22 17:55 Discharge Date: 05/29/22 Consults: 05/25/22 17:31 Consult to General Surgery Stat Comment: Consulting Provider: Bren Camp Reason for consultation: small bowel obstruction Has provider been notified: Yes 05/26/22 00:04 Consult to Discharge Planning Routine Comment: from out of town, on his own boat. Discharge provider: Claude Monahan MD Exam Vital Signs (past 8 hours): - 05/29/22 04:21 05/29/22 08:06 05/29/22 08:07 Temperature 97.9 F 97.9 F Pulse Rate 68 57 L Respiratory Rate 20 16 Blood Pressure 135/77 134/77 Pulse Oximetry 95 97 97 Oxygen Delivery Method Room Air Oxygen Flow Rate 0 0 Oxygen Delivery Method Room Air Oxygen Flow Rate 0 Objective Labs Result Diagrams: 05/26/22 06:55 05/26/22 06:55 [facility] Social History household members: spouse Smoking Status: Former smoker alcohol intake: current Discharge Plan Discharge Plan Patient Disposition: Home Discharge orders & Medications Prescriptions: Continued amlodipine 10 mg tablet 10 mg PO DAILY Quality VTE Deep Vein Thrombosis/Pulmonary Embolism Present on Admission: No
--- NOTE | 2022-05-29 13:02 | PC.NURSE ---
Pt is dressed and ready for discharge home with Spouse. IV's has been removed. Went over d/c instructions with Pt and Spouse-discussed d/c meds, no new prescriptions, time of last dose, reviewed stroke education, reviewed dietary recommendation to decrease bowel obstruction risk, encouraged Pt to drink plenty of fluids to prevent constipation or dehydration. Pt to follow up with PCP when he returns home to [facility]. Pt out via w/c by [employer] to POV with Spouse and all belongings.
== END 2022-05-29 13:11 | disposition home or self-care (01) | DRG 390 ==
LOC: ED 17:46 → AC 17:57
PROVIDERS: Emergency Medicine; Admitting Provider Surgery; Emergency Provider Surgery; Referring Provider Nurse Practitioner Critical Care Medicine; Visit Provider Surgery
DX: K56.601 Complete intestinal obstruction, unspecified as to cause (principal); I10 Essential (primary) hypertension; Z87.891 Personal history of nicotine dependence; Z20.822 Contact with and (suspected) exposure to COVID-19
CPT/HCPCS: 36415; 71045; 74177; 80048; 80053; 81003; 81015; 83605; 83690; 83735; 83880; 85025; 87635; 96372; 96374; 99221; 99231; 99232; 99238; 99284; 99285; C9803; A9270; J1650; J2405; Q9967